=== PATIENT | male | born 1995 | race Caucasian/White ===

== ENCOUNTER 2019-10-14 20:10 | Day surgery (SDC) | payer OTHER ==
[~2019-10-14] VITALS: Ht 175.3 cm; Wt 54.4 kg
[2019-10-16] MEDS ORDERED: CIPRO500 MG PO (08:17)
[2019-10-16] MEDS ORDERED: ULTRACET PO (08:18)
[2019-10-16] MEDS ORDERED: PROTONIX40 M1 PO (08:19)
== END 2019-10-16 08:00 | disposition home or self-care (01) ==
LOC: ER 20:10 → SURH 10-15 00:11 → CIR.AMB 10-15 07:00 → EDSTATUS 10-15 07:00 → CIR.AMB 10-16 08:00 → SURH 10-16 10:49
PROVIDERS: ATTEND Surgery
DX: K35.890 Other acute appendicitis without perforation or gangrene (principal); K66.0 Peritoneal adhesions (postprocedural) (postinfection)